=== PATIENT | male | born 1955 | race Caucasian/White ===

== ENCOUNTER 2017-02-05 16:56 | Emergency (ER) | payer MEDICAID ==
[~2017-02-05] VITALS: Ht 167.6 cm; Wt 75.0 kg
[2017-02-05 16:58] VITALS: Ht 167.6 cm; Wt 75.0 kg
[2017-02-05] MEDS ORDERED: SOD CHLORIDE 0.9% 1,000 ML IV STA (17:49)
[2017-02-05] MEDS ORDERED: ONDANSETRON 4 MG INJ IV ONE (18:00)
[2017-02-05] MEDS ORDERED: morphine 2 MG INJ IV ONE (18:00)
[2017-02-05 18:22] LABS: ADD SCAN DIFF NO
[2017-02-05] MEDS ORDERED: SOD CHLORIDE 0.9% 100 ML ONE (18:22)
[2017-02-05] MEDS ORDERED: IOHEXOL 300MG/ML 150 ML BTL ONE (18:22)
[2017-02-05 18:23] LABS: BASOPHILS % 0.3 % (0.0-2.0); EOSINOPHILS # 0.2 10^3/ul (0.0-0.5); HEMATOCRIT 42.7 % (42.0-52.0); HEMOGLOBIN 14.4 g/dl (14.0-18.0); LYMPHOCYTES # 1.9 10^3/ul (0.8-2.9); LYMPHOCYTES % 24.6 % (15.0-51.0); MEAN CORPUSCULAR HEMOGLOBIN 29.8 pg (29.0-33.0); MEAN CORPUSCULAR HGB CONC 33.7 g/dl (32.0-37.0); MEAN CORPUSCULAR VOLUME 88.2 fl (82.0-101.0); MEAN PLATELET VOLUME 9.4 fl (7.4-10.4); MONOCYTE # 0.6 10^3/ul (0.3-0.9); MONOCYTES % 7.7 % (0.0-11.0); NEUTROPHIL # 4.9 10^3/ul (1.6-7.5); NEUTROPHILS % 63.8 % (39.0-77.0); PLATELET COUNT 290 10^3/UL (140-415); RED BLOOD COUNT 4.84 10^6/ul (4.70-6.10); RED CELL DISTRIBUTION WIDTH 13.2 % (11.5-14.5); WHITE BLOOD COUNT 7.8 10^3/ul (4.8-10.8)
[2017-02-05 18:33] LABS: ADD UMIC YES; URINE BILIRUBIN (Dip) NEGATIVE (NEGATIVE); URINE BLOOD (Dip) TRACE (NEGATIVE); URINE COLOR LT. YELLOW (YELLOW); URINE GLUCOSE (Dip) NEGATIVE (NEGATIVE); URINE KETONES (Dip) NEGATIVE (NEGATIVE); URINE LEUKOCYTE ESTERASE (Dip) NEGATIVE (NEGATIVE); URINE NITRITE (Dip) NEGATIVE (NEGATIVE); URINE TOTAL PROTEIN (Dip) NEGATIVE (NEGATIVE); URINE UROBILINOGEN (Dip) 0.2 E.U./dL (0.1-1.0)
[2017-02-05 18:41] LABS: SQUAMOUS EPITHELIAL CELL,UR RARE; URINE RBCS 0-2 /HPF (0)
[2017-02-05 18:44] LABS: POTASSIUM 4.5 mmol/L (3.5-5.1)
[2017-02-05 18:47] LABS: CALCIUM 9.6 mg/dl (8.4-10.2); CREATININE 1.15 mg/dl (0.61-1.24)
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
[2017-02-05] MEDS ORDERED: TRAM50TA2 PO (20:29)
[2017-02-05] MEDS ORDERED: HYDROCODONE/APAP (5/325) TAB PO ONE (20:30)
[2017-02-05 21:00] VITALS: BP 147/82; PULSE 95; RESP 20; TEMP 98
== END 2017-02-05 21:05 | disposition home or self-care (01) ==
LOC: E/R 16:56
DX: S32.020A Wedge compression fracture of second lumbar vertebra, initial encounter for closed fracture (principal); S20.219A Contusion of unspecified front wall of thorax, initial encounter; S80.11XA Contusion of right lower leg, initial encounter; I10 Essential (primary) hypertension; V19.49XA Pedal cycle driver injured in collision with other motor vehicles in traffic accident, initial encounter
CPT/HCPCS: 71260; 72125; 73590; 74177; 80048; 81001; 85025; 96374; 96375; J2270; J2405; J7030; Q9967; Z7502; Z7610